=== PATIENT | male | born 1965 | race Caucasian/White ===

== ENCOUNTER 2020-04-29 15:15 | Outpatient (RCR) | payer MEDICARE, SELFPAY | END 2020-07-02 23:59 | disposition home or self-care (01) | LOC: ANHDMC 15:15 | PROVIDERS: PCP Internal Medicine | DX: E10.649 Type 1 diabetes mellitus with hypoglycemia without coma (principal); Z71.89 Other specified counseling; Z79.4 Long term (current) use of insulin | CPT/HCPCS: G0108 ==